=== PATIENT | female | born 1995 | race African-American/Black ===

== ENCOUNTER 2017-10-25 17:51 | Emergency (ER) | payer OTHER ==
[2017-10-25 17:58] VITALS: BMI 27.3
[2017-10-25] MEDS ORDERED: METOCLOPRAMIDE HCL 10 MG TABLET (FP) PO ONE ×2 (18:17→19:07)
[2017-10-25] MEDS ORDERED: SODIUM CHLORIDE 0.9% 500 ML INFUS.BAG IV ONE (18:17)
--- NOTE | 2017-10-25 18:42 | PDOC ---
History of Present Illness - General Chief Complaint: Headache Stated Complaint: HEADACHE - History of Present Illness Initial Comments: 21 year old female with PMH of asthma, iron deficiency anemia, and currently 32 weeks () by US presenting for headache and diffuse extremity edema for the past three days. States that she was at a pool on and woke up the next day and had a throbbing headache (bilateral, frontal, throbbing, constant, 8/10, with photophobia, that disturbs her sleep). She tried low dose tylenol for the headache that did not achieve adequate relief. Admits to nausea ( throughout ), no vomiting, and normal vision. States her hands and feet have been swelling occasionally throughout her but have gotten worse over the past few days. Denies any drug, nicotine, or EtoH usage. Sees an OB but doesn't take or iron supplements. No fevers, chills, chest pain , cough, urinary symptoms, or other symptoms. 10/25/17 18:37 Past History - Past Medical History Allergies/Adverse Reactions: Allergies Allergy/AdvReac Type Severity Reaction Status Date / Time No Known Allergies Allergy Verified 10/25/17 17:58 Home Medications: Ambulatory Orders Vitamins (Sjr) - 1 tab PO DAILY 07/19/13 Asthma: Yes COPD: No - Surgical History Abdominal Surgery: No - Reproductive History (#): 1 Cervical CA: No Dysfunctional Uterine Bleeding: No Ectopic : No Endometrial CA: No Polycystic Ovaries: No Therapeutic (s) & number: No Tubal Ligation: No - Immunization History Immunization Up to Date: Yes - Suicide/Smoking/Psychosocial Hx Smoking Status: No Smoking History: Never smoked Number of Cigarettes Smoked Daily: 0 Review of Systems - Review of Systems Constitutional: No: Chills, Diaphoresis, Fever HEENTM: No: Blurred Vision Respiratory: Yes: Shortness of Breath. No: Cough Cardiac (ROS): Yes: Edema. No: Chest Pain ABD/GI: Yes: Nausea. No: Vomiting : No: Burning, Dysuria, Discharge Integumentary: No: Bruising, Change in Color, Erythema Neurological: Yes: Headache. No: Numbness, Paresthesia Psychiatric: No: Anxiety, Depression Hematologic/Lymphatic: No: Anemia, Blood Clots *Physical Exam - Vital Signs Last Vital Signs Temp Pulse Resp BP Pulse Ox 99.0 F 107 H 20 128/66 100 10/25/17 17:51 10/25/17 17:51 10/25/17 17:51 10/25/17 17:51 10/25/17 17:51 - Physical Exam General Appearance: Yes: Nourished, Appropriately Dressed. No: Apparent Distress HEENT: positive: EOMI, FERNANDA, Normal ENT Inspection, Other (Photophobia) Neck: positive: Trachea midline, Normal Thyroid, Supple, Stridor. negative: Tender, Rigid Respiratory/Chest: positive: Lungs Clear, Normal Breath Sounds, Respiratory Distress, Accessory Muscle Use. negative: Chest Tender Cardiovascular: positive: Regular Rhythm, Regular Rate Gastrointestinal/Abdominal: positive: Normal Bowel Sounds, Distended. negative : Tender, Flat, Soft Lymphatic: negative: Adenopathy, Tenderness Musculoskeletal: negative: Normal Inspection, Decreased Range of Motion Extremity: positive: Normal Capillary Refill, Normal Inspection, Normal Range of Motion. negative: Tender Integumentary: positive: Normal Color, Dry, Warm Neurologic: positive: Fully Oriented, Alert, Normal Mood/Affect, Normal Response , Motor Strength 5/5 ED Treatment Course - LABORATORY CBC & Chemistry Diagram: 10/25/17 19:06 10/25/17 19:06 Medical Decision Making - Medical Decision Making 21 year old female with PMH of iron deficiency anemia presenting with headache and extremity swelling. Headache improved with Tylenol and 1 L NS. Extremities were not swollen. HgB of 7 but patient asymptomatic. Patient discussed with Dr. Flores and she agrees to hold off on transfusion and to send her upstairs for NST and appropriate follow up instructions. Patient sent upstairs. 10/25/17 22:00 *DC/Admit/Observation/Transfer Diagnosis at time of Disposition: Anemia Qualifiers: Anemia type: iron deficiency Iron deficiency anemia type: unspecified iron deficiency Qualified Code(s): D50.9 - Iron deficiency anemia, unspecified - Discharge Dispostion Condition at time of disposition: Stable Decision to Admit order: No - Referrals - Patient Instructions Additional Instructions: Please take your iron pills as your anemia could be the cause of your headache. Please follow up with your ObyGyn as soon as possible. Please return to the ED if you have new or worsening symptoms. - Post Discharge Activity
[2017-10-25 19:19] LABS: MCHC 30.5 g/dl (32.0-36.0); MEAN CELL VOLUME 60.5 fl (80-96); MEAN PLT VOLUME 8.4 fl (7.5-11.1); PLATELET COUNT 208 K/MM3 (134-434); RBC 3.81 M/mm3 (3.60-5.2); RDW 21.1 % (11.6-15.6); WHITE BLOOD COUNT 9.8 K/mm3 (4.0-10.0)
[2017-10-25 19:31] LABS: INR 0.96 (0.82-1.09); PROTHROMBIN TIME (PATIENT) 10.9 SEC (9.7-13.0)
[2017-10-25 19:34] LABS: ADD RBC MORPHOLOGY YES; MCH 18.4 pg (25.7-33.7)
--- NOTE | 2017-10-25 19:36 | PDOC ---
Attending Attestation - HPI HPI: 10/25/17 20:34 Patient is a 21 year old female, 32 weeks , with a significant past medical history of Asthma, Anemia, who presents to the ED with complaints of frontal headache that began x3 days ago. Patient reports experiencing frontal headache thats he states is throbbing 8/10 pain. She reporting taking 1 tablet of tylenol this morning for pain with no relief, prompting her to come into the ED for further evaluation. She reports being told by her OB that her blood sugar was recently discovered to be high with iron levels lowered. Patient reports being prescribed iron tablets as per OB but states she is non compliant with the medication as well as being non compliant with her vitamins. She reports experiencing increased bilateral upper and lower extremity swelling, stating she has been swollen for the majority of her but states it increased in intensity over the last couple of days. Denies chest pain, Sob. Denies nausea, vomiting. Denies contact with sick individuals, out of state travelling. Denies head trauma, vision changes. Denies fever, chills. Denies any other dysuria, hematuria, constipation, diarrhea. Denies any other symptoms. Allergies: None Social history: No smoking. No alcohol. No illicit drugs. Denies any other symptoms. Surgical history: None PMD: Not on staff. <Rahat Mitchell - Last Filed: 10/25/17 20:34> - Resident Resident Name: [email or web address] - ED Attending Attestation I have performed the following: I have examined & evaluated the patient, The case was reviewed & discussed with the resident, I agree w/resident's findings & plan - Physicial Exam PE: 10/25/17 20:57 Pt has normal neuro exam normal HEENT. Afebrile. No pitting edema. She is anemic. She was given tylenol for the LECHUGA. SHe still has LECHUGA; prob due to the fact that she ate only a portion of a sandwich today, and little else. She is anemic, and we placed her on O2 - Medical Decision Making 10/25/17 21:00 Labs normal, other than hb/HCT; we will speak to Ob to see if they want to admit the patient for transfusion. If not, then she will go to [facility] for eval. <Ely Clinton - Last Filed: 10/25/17 21:02>
[2017-10-25] MEDS ORDERED: ACETAMINOPHEN 325 MG TABLET (FP) PO ONE (19:41)
[2017-10-25 19:46] LABS: ALBUMIN 2.8 g/dl (3.4-5.0); ALK PHOS 94 U/L (45-117); ANION GAP 8 (8-16); BILIRUBIN,TOTAL 0.5 mg/dL (0.2-1.0); BLOOD UREA NITROGEN 4 mg/dL (7-18); CALCIUM 8.1 mg/dL (8.5-10.1); CHLORIDE 109 mmol/L (98-107); CO2 23 mmol/L (21-32); CREATININE 0.5 mg/dL (0.55-1.02); GLUCOSE,RANDOM 82 mg/dL (74-106); POTASSIUM 3.8 mmol/L (3.5-5.1); SGOT/AST 17 U/L (15-37); SGPT/ALT 13 U/L (12-78); SODIUM 140 mmol/L (136-145); TOT PROT 6.3 g/dl (6.4-8.2)
[2017-10-25 20:11] LABS: URINE APPEARANCE CLEAR; URINE BILIRUBIN NEGATIVE (<2.0 mg/dL); URINE COLOR LTYELLOW; URINE GLUCOSE (UA) NEGATIVE (NEGATIVE); URINE KETONE NEGATIVE (NEGATIVE); URINE LEUK ESTERASE NEGATIVE (NEGATIVE); URINE NITRITE NEGATIVE (NEGATIVE); URINE PROTEIN NEGATIVE (NEGATIVE); URINE UROBILINOGEN 4.0 E.U/dl mg/dL (0.2-1.0)
[2017-10-25] MEDS ORDERED: ACETAMINOPHEN 325 MG TABLET (FP) ONE (20:21)
[2017-10-25 20:36] LABS: ANISOCYTOSIS 2+; MACROCYTOSIS 1+
[2017-10-25 20:37] LABS: OVALOCYTE 1+; PLATELET ESTIMATE ADEQUATE
[2017-10-25 21:06] LABS: EPI CELLS RARE /HPF (FEW); URINE MUCUS RARE
[2017-10-25 23:53] VITALS: BP 117/60; PULSE 73; TEMP 98.3
--- NOTE | 2017-10-26 09:05 | EKG ---
Test Reason : Blood Pressure : / mmHG Vent. Rate : 102 BPM Atrial Rate : 102 BPM P-R Int : 144 ms QRS Dur : 078 ms QT Int : 336 ms P-R-T Axes : 033 025 023 degrees QTc Int : 437 ms SINUS TACHYCARDIA OTHERWISE NORMAL ECG NO PREVIOUS ECGS AVAILABLE Confirmed by ROSA MARIA MARTINEZ MD ([id number]) on 10/26/2017 9:04:29 AM Referred By: Confirmed By:ROSA MARIA MARTINEZ MD
== END 2017-10-25 23:30 | disposition home or self-care (01) ==
LOC: JER 17:51
PROC: 3E0337Z Introduction of Electrolytic and Water Balance Substance into Peripheral Vein, Percutaneous Approach (ICD-10-PCS; principal; 2017-10-25)
DX: O26.893 Other specified pregnancy related conditions, third trimester (principal); O99.013 Anemia complicating pregnancy, third trimester; D64.89 Other specified anemias; Z3A.32 32 weeks gestation of pregnancy
CPT/HCPCS: 36415; 80053; 81003; 81015; 83735; 85025; 85610; 86850; 86900; 86901; 87086; 93005; 93010; 96374; 99282-25